=== PATIENT | male | born 1955 | race Caucasian/White ===

== ENCOUNTER 2018-02-09 06:48 | Emergency (ER) | payer OTHER ==
[~2018-02-09] VITALS: Ht 177.8 cm; Wt 135.6 kg
[2018-02-09] MEDS ORDERED: GLUCOPHAGE500 MG PO (09:25)
== END 2018-02-09 10:08 | disposition home or self-care (01) ==
LOC: ED 06:48
DX: M54.5 Low back pain (principal); R73.9 Hyperglycemia, unspecified
CPT/HCPCS: 76705; 80053; 81001; 83690; 85025; 99284

== ENCOUNTER 2018-05-14 19:03 | Observation (INO) | payer OTHER ==
[~2018-05-14] VITALS: Ht 177.8 cm; Wt 135.1 kg
[~2018-05-14 19:03] MED LIST: GLUCOPHAGE500 MG PO
[2018-05-15] MEDS ORDERED: NORCO 5-325 TA1 EACH PO (02:39)
--- NOTE | 2018-05-15 04:00 | NUR ---
IN ROOM FOR PT ADMISSION. ASSESSMENT COMPLETE. PT AOX4, APPROPRIATE, POLITE. PT ARRIVED FROM ED IN STRETCHER. AMBULATED TO BED INDEPENDENTLY. HEART SOUNDS HEARD, CLEAR S1/S2, LS CLEAR, BT ACTIVE IN ALL QUADRANTS. PT DENIES ANY ABD DISCOMFORT OR PAIN AT THIS TIME. PAIN 0/10. NO N/V. PULSES STRONG AND EQUAL BILATERALLY. PERRLA 2-3MM, BRISK. PT ORIENTED TO ROOM. CALL LIGHT AT BEDSIDE. SECOND IV STARTED IN PT'S LEFT FOREARM, 20G. FLUSHES WELL, BLOOD RETURN NOTED. IV LR RUNNING PER EMAR. NO REQUESTS AT THIS TIME. CALL LIGHT WITHIN REACH.
--- NOTE | 2018-05-15 06:48 | NUR ---
PT AOX3, PLEASANT AND APPROPRIATE. PT INDEPENDENT IN ROOM. AMBULATES WELL. IV RUNNING PER EMAR. WNL. PT DENIES ANY N/V/D, NO ABD. DISCOMFORT. PT DENIES PAIN RATES AT 0/10. PT NPO R/T POSSIBLE SURGERY, HEART SOUNDS HEARD CLEAR S1,S2. LS CLEAR, BT ACTIVE. NO TENDERNESS WITH PALPATION. PULSES EQUAL BILATERALLY. NO REQUESTS AT THIS TIME. CALL LIGHT WITHIN REACH.
--- NOTE | 2018-05-15 07:04 | NUR ---
SPOKE WITH MD LEWIS, NEW ORDERS FOR CHEST XRAY AND EKG PRE OP, NOW. ORDERS ENTERED.
--- NOTE | 2018-05-15 07:45 | NUR ---
RECIEVED BEDSIDE REPORT FROM SHIRA MORRIS AND SHIRA ALVARADO. PT IS AWAKE AND ALERT IN BED. DR LEWIS HAS NOT BEEN IN TO SEE PT YET. EKG IN ROOM DURING REPORT. DAY SURGERY CALLED, THEY WANT PT TO GO TO DAY SURGERY DIRECTLY FROM CHEST XRAY. PREOP CHECKLIST HAS NOT BEEN STARTED.
--- NOTE | 2018-05-15 09:53 | HP ---
[facility] [address] [place], [place] [address] Signed ADMISSION DATE: 05/14/2018 CHIEF COMPLAINT: Obstructing right ureteral calculus with associated active urinary tract infection. HISTORY OF PRESENTING ILLNESS: Mr. Matos is a very pleasant 62-year-old gentleman with no previous history of nephrolithiasis, who presented to the emergency department late last night with a 4-day history of anorexia and malaise. He describes that his symptoms began last and he noticed that he just was not "feeling well" and had lost his desire to eat and drink fluids. He denies any gross hematuria or symptoms of active fever. A couple of days later, he began to induce vomiting in an effort to improve his generalized malaise. He made the decision to come to the emergency department late last night after experiencing four days of symptoms. He underwent a CT scan in the emergency department, which revealed a 6 mm distal right ureteral calculus with associated hydronephrosis. Urinalysis revealed no evidence of nitrites, trace leukocytes, and 30 white blood cells per high-power field. CBC revealed a white blood cell count of 12.3. I was contacted by the emergency department, who notified me of the obstructing stone in combination with what appeared to be an active urinary tract infection. The patient has since been admitted to observation medical-surgical floor and has made n.p.o. and given IV Rocephin in preparation for semi-urgent intervention. REVIEW OF SYSTEMS: Positive for nausea, anorexia, vomiting, and right lower quadrant discomfort. Review of systems is negative for chest pain, fevers, chills, gross hematuria or dysuria. PAST MEDICAL HISTORY: Significant for diabetes and osteoarthritis of the bilateral knees. PAST SURGICAL HISTORY: The patient underwent an appendectomy and tonsillectomy at age 6. MEDICATIONS: The patient is currently taking metformin twice daily, which was given to him relatively recently in the emergency department when he presented there with elevated blood sugars. He is yet to see a primary care physician. FAMILY HISTORY: Noncontributory. SOCIAL HISTORY: Electronically Signed By: ALYSIA LEWIS MD 05/15/18 0953 PATIENT NAME: EMILY MATOS HISTORY AND PHYSICAL DATE OF : 57 REPORT #: [id number] PHYSICIAN: ALYSIA LEWIS MD PCP: ENLA DEVINE MD REPORT IS CONFIDENTIAL AND NOT TO BE RELEASED WITHOUT AUTHORIZATION [address] [address] Signed The patient denies any alcohol or tobacco use. 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 PHYSICAL EXAMINATION: VITAL SIGNS: The patient's current temperature is 98.4 degrees Fahrenheit, his pulse is in the 70s to 80s. Blood pressure is in the 140s over 80s. GENERAL: On exam, he appears in no acute distress. He is alert and oriented. He is answering all questions appropriately. CARDIOVASCULAR: Reveals a regular rate and rhythm. LUNGS: Clear. ABDOMEN: Soft and nondistended. There is some mild tenderness to palpation of the right lower quadrant. EXTREMITIES: He is moving all extremities equally. LABORATORY DATA: White blood cell count 12.3, creatinine 1.15, and GFR 65. Urinalysis reveals trace leuks and 30 white blood cells per high-power field. IMAGING: CAT scan revealed a 6 mm right ureteral calculus approximately 1 cm above the right ureterovesical junction. There was associated hydronephrosis as well as perinephric stranding on that side. There were no other stones seen in either kidney. ASSESSMENT: 1. Obstructing 6 mm distal right ureteral calculus with associated hydronephrosis. 2. Presumed urinary tract infection/pyuria. PLAN: The patient has been n.p.o. Since 0300 hours this morning. He was admitted to observation and was given IV fluids and pain control as needed. He is now ready to head to the operating room to undergo cystoscopy with right ureteral stent insertion. I explained the risks and benefits of the procedure today to him and answered all of his questions, and he has agreed to proceed. I explained to him today that he will be stented today and be sent home on oral antibiotics once he remains afebrile for at least 3-4 hours after surgery. He will likely return next Tuesday, one week from now, to undergo definitive extraction of a 6 mm right distal ureteral calculus. Alysia Lewis MD Electronically Signed By: ALYSIA LEWIS MD 05/15/18 0953 PATIENT NAME: EMILY MATOS HISTORY AND PHYSICAL DATE OF : 57 REPORT #: [id number] PHYSICIAN: ALYSIA LEWIS MD PCP: NELA DEVINE MD REPORT IS CONFIDENTIAL AND NOT TO BE RELEASED WITHOUT AUTHORIZATION [address] [address] Signed AR/MODL /[id number] Copies: ~ Electronically Signed By: ALYSIA LEWIS MD 05/15/18 0953 PATIENT NAME: EMILY MATOS HISTORY AND PHYSICAL DATE OF : 57 REPORT #: [id number] PHYSICIAN: ALYSIA LEWIS MD PCP: NELA DEVINE MD REPORT IS CONFIDENTIAL AND NOT TO BE RELEASED WITHOUT AUTHORIZATION
--- NOTE | 2018-05-15 10:13 | NUR ---
05/15/18 1013 Antoinette Llanes 1000 PT ARRIVED IN PACU SLEEPY WITH NO C/O'S. 1010 AT BEDSIDE TALKING TO PT.
--- NOTE | 2018-05-15 10:45 | NUR ---
PT ARRIVED BACK ON UNIT AT 1040. REPORT FROM SHIRA BACK. PT AWAKE AND ALERT IN BED. REPORTS NO NAUSEA, ITCHING OR PAIN. NEEDS TO VOID. HAT AND URININAL PLACED IN BATHROOM. PT ABLE TO STAND AND WALK INDEPENDENTLY. REPORTS NO DIZZINESS OR LIGHTHEADEDNESS.
[2018-05-15] MEDS ORDERED: AUGMENTIN 875-1 EACH PO (10:50)
[2018-05-15] MEDS ORDERED: PERCOCET 5-3251 EACH (10:53)
[2018-05-15] MEDS ORDERED: PERCOCET 5-3251 EACH PO (10:55)
--- NOTE | 2018-05-15 12:27 | NUR ---
PT UP TO VOID. TOLERATING CLEAR LIQUIDS WELL. WOULD LIKE TO ORDER LUNCH, DIET ENTERED IS REGULAR. PT IS ORDERING LUNCH.
--- NOTE | 2018-05-15 13:43 | NUR ---
PT IN BED, ALERT, ORIENTED AND LOOKING AT MENU FOR LUNCH. PT STATED HE WAS NOT IN PAIN, AND REQUESTED I CONTACT HIS AMMONIA BOX OPERATOR FROM [facility], WHICH I DID. WILL CONTINUE TO FOLLOW NEEDED
--- NOTE | 2018-05-15 14:11 | OR ---
[facility] [address] [place], [place] [address] Signed DATE OF OPERATION: 05/15/2018 SURGEON: Alysia Lewis MD PREOPERATIVE DIAGNOSES: 1. A 6 mm right distal ureteral calculus, with associated hydronephrosis. 2. Active urinary tract infection. POSTOPERATIVE DIAGNOSES: 1. A 6 mm right distal ureteral calculus, with associated hydronephrosis. 2. Active urinary tract infection. NAMES OF PROCEDURES: 1. Diagnostic cystourethroscopy. 2. Insertion of right ureteral stent. ANESTHESIA: General. ESTIMATED BLOOD LOSS: Minimal. COMPLICATIONS: None. SPECIMENS: None. DRAINS: A 6 x 26 cm contour double-J ureteral stent inserted to the right collecting system. INDICATIONS FOR PROCEDURE: Mr. Matos is a very pleasant 62-year-old gentleman with no previous history of nephrolithiasis, who presented to the emergency department late last night with a 4-day history of right lower quadrant discomfort along with malaise and anorexia. At the time of his presentation to the emergency department, he denied any issues with fevers, chills, or gross hematuria. Urinalysis revealed trace leukocytes as well as 30 white blood cells per high-power field. A CT scan was performed, which revealed a 6 mm obstructing right ureteral calculus located a cm above the right ureterovesical junction, along with hydronephrosis and perinephric stranding on the right side. I was Electronically Signed By: ALYSIA LEWIS MD 05/15/18 1411 PAT[facility] RECORD #: [id number] OPERATIVE REPORT DATE OF : 57 REPORT #: [id number] PHYSICIAN: ALYSIA LEWIS MD PCP: NELA DEVINE MD REPORT IS CONFIDENTIAL AND NOT TO BE RELEASED WITHOUT AUTHORIZATION [facility] [address] [place], [place] [address] Signed consulted by the emergency department physician and based on the patient's current clinical picture, he was assigned observation to the medical-surgical unit and was made n.p.o. and given IV antibiotics. He presents now to undergo cystoscopy with right ureteral stent insertion for decompression of his right collecting system. FINDINGS: 1. On cystoscopy, there was no evidence of any suspicious masses, lesions, or stones. Bilateral ureteral orifices are in their normal anatomic location. 2. Ureteroscopy revealed some mild narrowing and discoloration of the proximal urethra. I was able to pass the 22.5-Vincentian sheath through this portion of the urethra without any significant difficulty. 3. After insertion of a Sensor wire and confirmation of placement of the wire on fluoroscopy, I passed a 6 x 26 cm contour double-J ureteral stent into the right ureter under direct visualization. DESCRIPTION OF PROCEDURE: After informed consent was obtained, the patient was taken back to the operating room. He was transferred from the [facility] to the operating room table, where general anesthesia was induced. He was placed in the dorsal lithotomy position and his genitalia were prepped and draped in the standard sterile fashion. Using a 30-degree lens on a 22.5-Vincentian introducer, rigid cystoscope was inserted through his urethra into his bladder under direct visualization. Please see the above findings. Once a thorough cystoscopy was performed, I turned my attention to the right to the right ureteral orifice. A Sensor wire was inserted into the right ureteral orifice and up to the collecting system. A moderate amount of debris and sediment was known to be effluxing out of the right ureter once the sensor wire was passed. There definitely appeared to be evidence of out of outlet obstruction from the right ureteral orifice with the wire and the position confirmed on fluoroscopy, a 6 x 26 cm contour double-J ureteral stent was then inserted into the patient's right ureter under direct visualization. Once the wire was pulled, an adequate proximal coil was seen within the right renal pelvis, along with an adequate distal coil on cystoscopy. The patient's bladder was then drained and the cystoscope was removed. The procedure was then terminated. The patient tolerated the procedure well without any complication. He will now be transferred to the postanesthesia care unit in stable condition. DISPOSITION: I discussed the details of today's procedure with the patient, answered all of his questions. He understands that he is to return to the operating room on May 23, 2018 to undergo definitive stone extraction in the form of right ureteroscopy, laser lithotripsy, basket extraction of stones and right ureteral stent exchange. If he remains afebrile for at least the next 4 hours, he will qualify to be sent home on Augmentin 875 p.o. b.i.d. for a total of seven days. He was also given Percocet /325 Electronically Signed By: ALYSIA LEWIS MD 05/15/18 1411 PATIENT NAME: EMILY MATOS OPERATIVE REPORT DATE OF : 57 REPORT #: [id number] PHYSICIAN: ALYSIA LEWIS MD PCP: NELA DEVINE MD REPORT IS CONFIDENTIAL AND NOT TO BE RELEASED WITHOUT AUTHORIZATION [address] [address] Signed q.6 hours p.r.n. pain, dispense #30. 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 Alysia Lewis MD AR/NANOL /[id number] Copies: ~ Electronically Signed By: ALYSIA LEWIS MD 05/15/18 1411 PATIENT NAME: EMILY MATOS OPERATIVE REPORT DATE OF : 57 REPORT #: [id number] PHYSICIAN: ALYSIA LEWIS MD PCP: NELA DEVINE MD REPORT IS CONFIDENTIAL AND NOT TO BE RELEASED WITHOUT AUTHORIZATION
--- NOTE | 2018-05-15 14:22 | NUR ---
DR LEWIS CALLED. RN GAVE UPDATE ON PT CONDITION. DR LEWIS WOULD LIKE HIM TO STAY UNTIL 1500, IF STILL AFEBRILE AND VSS, CAN GO HOME. PT IS SCHEDULED TO RETURN TO THE OR ON MAY 23, NEEDS TO CHECK IN AT ADMITING AT 0900.
--- NOTE | 2018-05-15 15:58 | NUR ---
PT DISCHARGE TEACHING COMPLETE. DISCUSSED FOLLOW UP SURGERY ON MAY 23. PT VERBALIZED UNDERSTANDING. PHARMACY COUNCELED ON MEDICATIONS. IV OUT, PT DRESSED. FRIENDS ENROUTE TO ENGAGEMENT DIRECTOR PT.
--- NOTE | 2018-05-16 14:43 | EKG ---
[facility] [address] [facility] [place], [place] [address] Signed Normal sinus rhythm Normal ECG No previous ECGs available Confirmed by ALONZO RUBI MD ([id number]) on 05/16/2018 2:43:38 PM Electronically Signed By: ALONZO RUBI MD 05/16/18 1443 PATIENT NAME: EMILY NEVAREZ Electrocardiogram DATE OF : 57 PHYSICIAN: ALONZO RUBI MD REPORT #: [id number] REPORT IS CONFIDENTIAL AND NOT TO BE RELEASED WITHOUT AUTHORIZATION
== END 2018-05-15 16:10 | disposition home or self-care (01) ==
LOC: ED 19:03 → MS 19:04
PROVIDERS: ADMIT Urology
PROC: 0T768DZ Dilation of Right Ureter with Intraluminal Device, Via Natural or Artificial Opening Endoscopic (ICD-10-PCS; principal; 2018-05-15 08:30)
DX: N13.6 Pyonephrosis (principal); E11.9 Type 2 diabetes mellitus without complications; E66.9 Obesity, unspecified; M17.0 Bilateral primary osteoarthritis of knee; Z79.84 Long term (current) use of oral hypoglycemic drugs; Z68.41 Body mass index [BMI] 40.0-44.9, adult
CPT/HCPCS: 00910; 71046; 74018; 74176; 80053; 81001; 83690; 85025; 93005; 93010; 96361; 96374; 96375; 99285; C2617; G0378; J0330; J0696; J1100; J1885; J2250; J2543; J2704; J3010; J7030

== ENCOUNTER 2018-05-23 09:09 | Day surgery (SDC) | payer OTHER ==
[~2018-05-23] VITALS: Ht 177.8 cm; Wt 135.1 kg
--- NOTE | ~2018-05-23 | OR ---
[facility] [address] [facility] [place], [place] [address] Draft DATE OF OPERATION: 05/23/2018 SURGEON: Alysia Lewis MD PREOPERATIVE DIAGNOSES: 1. Right distal ureteral calculus. 2. History of active urinary tract infection in the presence of an obstructing 6 mm distal right ureteral calculus. POSTOPERATIVE DIAGNOSES: 1. Right distal ureteral calculus. 2. History of active urinary tract infection in the presence of an obstructing 6 mm distal right ureteral calculus. NAMES OF PROCEDURES: 1. Diagnostic cystoscopy with right retrograde pyelogram. 2. Right semi-rigid ureteroscopy with laser lithotripsy and basket extraction of stones. 3. Right ureteral stent exchange. ANESTHESIA: General. ESTIMATED BLOOD LOSS: Minimal. COMPLICATIONS: None. SPECIMENS: Fragments of right ureteral calculus, sent to the lab for stone analysis. DRAINS: A 6 x 28 cm double-J ureteral stent inserted in the right ureter. INDICATIONS FOR PROCEDURE: Mr. Goodwin is a very pleasant 62-year-old gentleman, who presented last week to the emergency department with malaise and flank pain. He was also found to have an active UTI at that time. He underwent a CT scan, which revealed a 6 mm distal right ureteral calculus with associated hydronephrosis. He subsequently underwent semi-emergent cystoscopy with right ureteral stent insertion approximately one week ago. He presents PATIENT NAME: EMILY MATOS OPERATIVE REPORT DATE OF : 57 REPORT #: [id number] PHYSICIAN: ALYSIA LEWIS MD PCP: NELA DEVINE MD REPORT IS CONFIDENTIAL AND NOT TO BE RELEASED WITHOUT AUTHORIZATION [facility] [address] [place], [place] [address] Draft today to undergo definitive extraction of his obstructing 6 mm distal right ureteral calculus. OPERATIVE FINDINGS: 1. On cystoscopy, there was no evidence of any suspicious masses, lesions, or stones within the bladder. He has an indwelling right ureteral stent, which appears to be moderately calcified. 2. Right retrograde pyelogram was performed, which revealed no evidence of any dilation of the right renal calyces or right ureter prior to retrograde urography. An approximately 6 mm calcification can be seen in the distal right ureter on fluoroscopy. 3. Right semi-rigid ureteroscopy was performed and the 6 mm stone was located in the distal right ureter approximately a 1.5 cm above the right ureteral orifice. The stone was fragmented using a 270 micron fiber with the holmium laser. The stone fragmented with some difficulty; however, I was able to extract 100% of the stone fragments with a Zero tip basket. 4. A 6 x 28 cm Contour double-J ureteral stent was inserted into the right collecting system at the end of the procedure. DESCRIPTION OF PROCEDURE: After informed consent was obtained, the patient was taken back to the operating room. He was transferred from the [facility] to the operating room table, where general anesthesia was induced. He was placed in a dorsal lithotomy position and his genitalia prepped and draped in standard sterile fashion. Using a 30-degree lens on a 22-1/2-Italian introducer, rigid cystoscope was inserted through his urethra and into his bladder under direct visualization. Panendoscopic views of the bladder were then obtained. Attention was turned to the right ureteral orifice where there was an indwelling right ureteral stent. Please see above findings. The stent was removed to the level of the urethral meatus using the graspers. A 0.035 sensor wire was then inserted into the lumen of the stent into the right collecting system. The indwelling stent was removed fully intact. I attempted retrograde pyelogram with the wire in place; however, this was unsuccessful. Therefore, I passed a semi-rigid ureteroscope alongside the wire into the patient's right distal ureter. I was able to identify the stone in the distal ureter and then fragmented using a holmium laser and a 270 micron fiber. The stone fragmented with some difficulty, making it suspicious of a calcium oxalate monohydrate stone. Once the stone was fragmented, I was able to extract all of the fragments using a Zero tip basket without difficulty. The fragments initially were placed into the patient's bladder. With the Sensor wire still in place, I passed a 6 x 28 cm Contour double-J ureteral stent into the right collecting system under direct visualization without difficulty. Once the stent was in good positioning with an adequate proximal coil within the right renal pelvis along with an adequate distal coil within the bladder, I used the cystoscope to extract the stone fragments from the patient's bladder and placed them in a specimen cup. The patient's bladder was then emptied and the cystoscope was removed. PATIENT NAME: EMILY MATOS OPERATIVE REPORT DATE OF : 57 REPORT #: [id number] PHYSICIAN: ALYSIA LEWIS MD PCP: NELA DEVINE MD REPORT IS CONFIDENTIAL AND NOT TO BE RELEASED WITHOUT AUTHORIZATION [facility] [address] [place] [address] Draft The procedure was then terminated. The patient tolerated the procedure well without any complication. He will now be transferred to the Postanesthesia Care Unit in stable condition. DISPOSITION: Mr. Matos will be discharged to home later today in stable condition once he awakes from anesthesia. I spoke with his daughter and discussed the details of today's procedure with her and answered all of her questions. He will be scheduled to return to clinic in three days to undergo cystoscopy with right ureteral stone extraction. I told the daughter at that time the stone analysis would likely not be available. However, he will be scheduled to see me approximately 3-4 weeks from now with a repeat urine check and to discuss the stone results. He was sent home today with Bactrim Double Strength p.o. b.i.d. for a total of 5 days along with Pyridium 200 mg p.o. b.i.d. p.r.n. dysuria, #12. He has told me that he already has pain pills at home to be used as needed. MD JUDY Roca/DOT /[id number] Copies: ~ PATIENT NAME: EMILY MATOS OPERATIVE REPORT DATE OF : 57 REPORT #: [id number] PHYSICIAN: AYLSIA LEWIS MD PCP: NELA DEVINE MD REPORT IS CONFIDENTIAL AND NOT TO BE RELEASED WITHOUT AUTHORIZATION
[~2018-05-23 09:09] MED LIST changes: +AUGMENTIN 875-1 EACH PO; +NORCO 5-325 TA1 EACH PO; +PERCOCET 5-3251 EACH; +PERCOCET 5-3251 EACH PO
--- NOTE | 2018-05-23 12:31 | NUR ---
05/23/18 Araceli1 Nayla Reno 1225-PATIENT ARRIVED TO PACU ON 6L MASK O2 SAT 1O0% PATIENT REACTIVE TO VOICE. DENIES PAIN OR NAUSEA. DROWSY BACK TO SLEEP RR EVEN. SR. GLUCOSE CHECKED 128. NO DRAINAGE NOTED TO CARLOS AREA
--- NOTE | 2018-05-23 13:19 | NUR ---
1300: PATIENT BACK IN DAY SURGERY ROOM FROM PACU. DENIES PAIN. STATES FEELS NEED TO USE THE BATHROOM. IV SITE WNL. SCDs ON. CALL LIGHT WITHIN REACH. DAUGHTER AT BEDSIDE. 1315: PATIENT ASSISTED OOB AND TO BATHROOM. GAIT STEADY. VOID WITHOUT DIFFICULTY. SMALL AMOUNT OF BLOOD SEEN IN URINE. GAIT STEADY BACK TO ROOM. IV SALINE LOCKED. SCDs BACK ON. CALL LIGHT WITH IN REACH. DECLINED SOMETHING TO EAT AT THIS TIME.
--- NOTE | 2018-05-23 14:24 | NUR ---
1410: PATIENT DENIES PAIN. TOLERATING WATER. LUNCH ORDERED FOR PATIENT. CALL LIGHT WITHIN REACH.
[2018-05-23] MEDS ORDERED: BACTRIM DS TAB1 EACH PO (14:35)
[2018-05-23] MEDS ORDERED: PYRIDIUM200 MG PO (14:36)
--- NOTE | 2018-05-23 16:21 | NUR ---
1515: PATIENT TOLERATED LUNCH. RESTING. DAUGHTER AT BEDSIDE. CALL LIGHT WITHIN REACH. 1550: IV DC'D WNL. TIP INTACT. DRESSING APPLIED. DISCHARGE INSTRUCTIONS GIVEN TO PATIENT. PATIENT DRESSED. DISCHARGED TO HOME WITH DAUGHTER VIA WHEELCHAIR.
== END 2018-05-23 15:50 | disposition home or self-care (01) ==
LOC: DS 09:09 → OPS 09:09 → DS 10:30 → OPS 10:30
PROVIDERS: Urology
PROC: 0T768DZ Dilation of Right Ureter with Intraluminal Device, Via Natural or Artificial Opening Endoscopic (ICD-10-PCS; principal; 2018-05-23 10:30)
PROC: 0TC68ZZ Extirpation of Matter from Right Ureter, Via Natural or Artificial Opening Endoscopic (ICD-10-PCS; 2018-05-23 10:30)
PROC: 0TP98DZ Removal of Intraluminal Device from Ureter, Via Natural or Artificial Opening Endoscopic (ICD-10-PCS; 2018-05-23 10:30)
PROC: BT1DYZZ Fluoroscopy of Right Kidney, Ureter and Bladder using Other Contrast (ICD-10-PCS; 2018-05-23 10:30)
DX: N13.2 Hydronephrosis with renal and ureteral calculous obstruction (principal); E11.9 Type 2 diabetes mellitus without complications; M17.0 Bilateral primary osteoarthritis of knee; E66.9 Obesity, unspecified; Z79.84 Long term (current) use of oral hypoglycemic drugs; Z68.41 Body mass index [BMI] 40.0-44.9, adult
CPT/HCPCS: 00918; 74420; 82365; C2617; J0330; J0696; J2250; J2405; J2704; J3010; J7120; Q9967

== ENCOUNTER 2018-11-11 17:14 | Emergency (ER) | payer BC ==
[~2018-11-11] VITALS: Ht 177.8 cm; Wt 135.1 kg
[~2018-11-11 17:14] MED LIST changes: +BACTRIM DS TAB1 EACH PO; +PYRIDIUM200 MG PO
--- NOTE | 2018-11-12 13:56 | EKG ---
[facility] [address] [facility] [place] [address] Signed Sinus rhythm with frequent premature ventricular complexes Otherwise normal ECG When compared with ECG of 15-MAY-2018 07:19, premature ventricular complexes are now present Nonspecific T wave abnormality now evident in Inferior leads Confirmed by JAYE CALABRESE MD ([id number]) on 11/12/2018 1:56:21 PM Electronically Signed By: JAYE CALABRESE MD 11/12/18 1356 PATIENT NAME: EMILY NEVAREZ Electrocardiogram DATE OF : 57 PHYSICIAN: JAYE CALABRESE MD REPORT #: [id number] REPORT IS CONFIDENTIAL AND NOT TO BE RELEASED WITHOUT AUTHORIZATION
== END 2018-11-11 19:11 | disposition home or self-care (01) ==
LOC: ED 17:14
DX: R06.00 Dyspnea, unspecified (principal); E11.9 Type 2 diabetes mellitus without complications; Z79.84 Long term (current) use of oral hypoglycemic drugs
CPT/HCPCS: 71045; 80053; 83880; 84484; 85025; 93005; 93010; 99284-25

== ENCOUNTER 2021-01-02 13:58 | Emergency (ER) | payer BC ==
[~2021-01-02] VITALS: Ht 177.8 cm; Wt 135.1 kg
[2021-01-02] MEDS ORDERED: METFORMIN HCL1000 MG PO (14:13)
--- NOTE | 2021-01-02 16:13 | EKG ---
[facility] [address] [place] [address] Signed Sinus tachycardia with 1st degree AV block with premature atrial complexes Inferior infarct , age undetermined Abnormal ECG When compared with ECG of 11-NOV-2018 18:17, premature ventricular complexes are no longer present premature atrial complexes are now present MN interval has increased Vent. rate has increased BY [address] now depressed in Lateral leads Confirmed by ALONZO RUBI MD ([id number]) on 01/02/2021 4:13:01 PM Electronically Signed By: ALONZO RUBI MD 01/02/21 1613 PATIENT NAME: EMILY NEVAREZ Electrocardiogram DATE OF : 57 PHYSICIAN: ALONZO RUBI MD REPORT #: [id number] REPORT IS CONFIDENTIAL AND NOT TO BE RELEASED WITHOUT AUTHORIZATION
--- NOTE | 2021-01-02 16:15 | EKG ---
[facility] [address] [place] [address] Signed Sinus rhythm with frequent premature ventricular complexes Otherwise normal ECG When compared with ECG of 02-JAN-2021 14:14, (Unconfirmed) premature ventricular complexes are now present premature atrial complexes are no longer present [place] interval has decreased Vent. rate has decreased BY [address] no longer depressed in Lateral leads Confirmed by ALONZO RUBI MD ([id number]) on 01/02/2021 4:15:10 PM Electronically Signed By: ALONZO RUBI MD 01/02/21 1615 PATIENT NAME: EMILY NEVAREZ Electrocardiogram DATE OF : 57 PHYSICIAN: ALONZO RUBI MD REPORT #: [id number] REPORT IS CONFIDENTIAL AND NOT TO BE RELEASED WITHOUT AUTHORIZATION
== END 2021-01-02 16:11 | disposition home or self-care (01) ==
LOC: ED 13:58
DX: I49.9 Cardiac arrhythmia, unspecified (principal); E11.9 Type 2 diabetes mellitus without complications; Z79.84 Long term (current) use of oral hypoglycemic drugs
CPT/HCPCS: 71045; 80053; 83735; 84439; 84443; 84484; 85025; 85379; 93005; 93010; 99285-25; J7030

== ENCOUNTER 2021-05-15 08:55 | Day surgery (SDC) | payer BC ==
[~2021-05-15] VITALS: Ht 177.8 cm; Wt 145.4 kg
[~2021-05-15 08:55] MED LIST changes: +METFORMIN HCL1000 MG PO; +VIT C-ROSE HIP500 MG PO
--- NOTE | 2021-05-15 11:02 | NUR ---
05/15/21 1102 Zohra Villegas 1058 PATIENT SLEEPING. AWAKENS WITH VERBAL STIMULI, BACK TO SLEEP WHEN NOT STIMULATED. RESP EVEN AND UNLABORED, NC AT 4 LITERS.
--- NOTE | 2021-05-15 15:30 | OR ---
[facility] [address], [place] [address] Signed DATE OF OPERATION: 05/15/2021 SURGEON: Parish Sherman MD PREOPERATIVE DIAGNOSES: 1. Positive Cologuard test. 2. Brother with a history of colonic polyps, age 50 with 10-year followup. POSTOPERATIVE DIAGNOSES: 1. Minimal to moderate external hemorrhoids. 2. Moderate internal hemorrhoids. 3. A 12 mm polyp at 40 cm (tattoo, snare). 4. A 7 mm polyp at 55 cm. 5. Minimal to moderate sigmoid diverticulosis. PROCEDURE: Colonoscopy with hot biopsy, snare polypectomy and injection of tattoo. ESTIMATED BLOOD LOSS: None. INDICATIONS: Buddy is a 65-year-old obese diabetic gentleman, asked to see me for his initial colonoscopy. His brother had colonic polyps removed at age 50. His brother was told to follow up every 10 years. The doctor told his brother all of his siblings should have colonoscopy. His brother now is 65 years old. Buddy had a positive Cologuard test. Otherwise, no specific lower GI complaints. 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 In the office, I gave him a pamphlet on colonoscopy and we had reviewed that together in detail. He understands the nature of the test along with the risks including, but not limited to gas bloating, crampy abdominal pain, bleeding, perforation requiring surgery, and missed diagnosis. Also because of his body habitus with a very around face, heavy neck, heavy abdomen and his medical issues, we asked that an anesthesia provider help us with increased monitoring sedation with propofol. That proved to be a gautam decision as he does need some attention to his airway while he is sedated. He had expressed understanding and wished to proceed. PROCEDURE NOTE: Buddy was taken into our endoscopy suite and placed in the left lateral decubitus position. He was placed under IV sedation with propofol per our nurse angle dozer operator. A Electronically Signed By: PARISH SHERMAN MD 05/15/21 1530 PATIENT NAME: BUDDY NEVAREZ OPERATIVE REPORT DATE OF : 57 REPORT #: [id number] PHYSICIAN: PARISH SHERMAN MD PCP: GERTRUDE SALAS NP REPORT IS CONFIDENTIAL AND NOT TO BE RELEASED WITHOUT AUTHORIZATION [facility] [address], [place] [address] Signed digital rectal exam was performed. He does have some minimal to moderate circumferential external hemorrhoids. He had good sphincter tone. Prostate is becoming mildly enlarged and indurated. The adult colonoscope was introduced and advanced under direct visualization of camera. His prep was moderate. There was a couple areas of liquid stool most of that was irrigated and suctioned out. He might consider some additional prep in the future. We could easily see the appendiceal orifice and the ileocecal valve. The scope was then slowly withdrawn. We took pictures throughout for photodocumentation. We used a hot biopsy forceps to remove the polyp at 55 cm. We had used the snare to remove the polyp back at 40 cm. We then placed a tattoo next to the polypectomy site. There was excellent hemostasis. He does have moderate sized diverticula in his sigmoid colon. They were minimal to moderate in number, and scattered about. The rectum was unremarkable. Upon retroflexion of scope, he does have moderate internal hemorrhoids. After this, the gas was suctioned out and colonoscope removed. Buddy tolerated the procedure quite well. RECOMMENDATIONS: I will see Buddy back in my office in 7 to 14 days to review his results. He might consider some additional bowel prep in the future. Parish Sherman MD ALB/MODL /[id number] cc: MD Gertrude Conn NP Copies: PARISH SHERMAN MD ~ Electronically Signed By: PARISH SHERMAN MD 05/15/21 1530 PATIENT NAME: BUDDY NEVAREZ OPERATIVE REPORT DATE OF : 57 REPORT #: [id number] PHYSICIAN: PARISH SHERMAN MD PCP: GERTRUDE SALAS NP REPORT IS CONFIDENTIAL AND NOT TO BE RELEASED WITHOUT AUTHORIZATION
--- NOTE | 2021-05-18 14:19 | PATH ---
[facility] [address] [place], [place] [address] Signed SPECIMEN(S): A POLYP AT 40 CM SPECIMEN(S): B POLYP AT 55 CM SPECIMEN SOURCE: A. POLYP AT 40 CM B. POLYP AT 55 CM CLINICAL HISTORY: Surveillance colonoscopy. Postop Dx: Internal and external hemorrhoids, diverticulosis, polyps x 2. MICROSCOPIC DESCRIPTION: Histologic sections of all submitted blocks are examined by light microscopy. These findings, together with the gross examination, support the pathologic diagnosis. FINAL PATHOLOGIC DIAGNOSIS: A. Colon, polyp at 40 cm, polypectomy: - Tubular adenoma with focal high-grade dysplasia. - Cauterized polyp stalk margin negative for dysplasia. - Negative for invasive carcinoma. B. Colon, polyp at 55 cm, polypectomy: - Fragments of tubular adenoma. - Negative for high-grade dysplasia or malignancy. NAL:cml:C2NR GROSS DESCRIPTION: Two specimens are received in two containers labeled with "." A. The specimen, labeled "MD 1," and designated on the requisition "polypectomy, 40 cm," is received in formalin and consists of one pink-nelson, pedunculated polyp with bosselated head (1.4 x 1.2 x 0.9 cm). The resection margin is inked blue and the specimen is trisected and submitted entirely in cassette (A1). B. The specimen, labeled ", 2," and designated on the requisition "polypectomy at 55 cm," is received in formalin and consists of four fragments of pink-nelson tissue (0.2-0.3 cm in greatest dimension). The specimen is submitted entirely in cassette (B1). AC (under the direct supervision of a pathologist) The Gross Description was prepared using a voice recognition system. The report was reviewed for accuracy; however, sound-alike word errors, addition and/or deletions may occur. If there is any question about this report, please contact Client Services. PATIENT NAME: EMILY NEVAREZ PATHOLOGY DATE OF : 57 REPORT #: [id number] PHYSICIAN: LUIS PATHOLOGY PCP: LAVERN SALAS NP REPORT IS CONFIDENTIAL AND NOT TO BE RELEASED WITHOUT AUTHORIZATION [facility] [address] [place], [place] [address] Signed PERFORMING LABORATORY: The technical component was performed by [address] [address] (Marketing Administrative Assistant: Coco Mi MD; CLIA# [id number]). Professional interpretation was performed by [facility], [address] [address] (CLIA# [id number]). Diagnostician: Kimberly Mccartney MD Pathologist Electronically Signed 05/18/2021 Copies: ~ PATIENT NAME: EMILY NEVAREZ PATHOLOGY DATE OF : 57 REPORT #: [id number] PHYSICIAN: LUIS SWEENEY PCP: LAVERN SALAS NP REPORT IS CONFIDENTIAL AND NOT TO BE RELEASED WITHOUT AUTHORIZATION
== END 2021-05-15 11:25 | disposition home or self-care (01) ==
LOC: OPS 08:55 → DS 08:55 → OPS 10:00 → DS 06-19 06:45
PROVIDERS: ATTEND Colon & Rectal Surgery
PROC: 0DBE8ZX Excision of Large Intestine, Via Natural or Artificial Opening Endoscopic, Diagnostic (ICD-10-PCS; 2021-05-15)
PROC: 3E0H8KZ Introduction of Other Diagnostic Substance into Lower GI, Via Natural or Artificial Opening Endoscopic (ICD-10-PCS; 2021-05-15)
PROC: 0DBE8ZX Excision of Large Intestine, Via Natural or Artificial Opening Endoscopic, Diagnostic (ICD-10-PCS; principal; 2021-05-15 10:00)
DX: D12.6 Benign neoplasm of colon, unspecified (principal); K64.8 Other hemorrhoids; K64.4 Residual hemorrhoidal skin tags; K57.30 Diverticulosis of large intestine without perforation or abscess without bleeding; E11.9 Type 2 diabetes mellitus without complications; J45.909 Unspecified asthma, uncomplicated; M19.90 Unspecified osteoarthritis, unspecified site; E66.01 Morbid (severe) obesity due to excess calories; Z68.42 Body mass index [BMI] 45.0-49.9, adult; Z83.71 Family history of colonic polyps; Z86.16 Personal history of COVID-19; Z79.84 Long term (current) use of oral hypoglycemic drugs
CPT/HCPCS: J1610; J2001; J2704; J7121

== ENCOUNTER 2022-12-27 10:12 | Emergency (ER) | payer BC ==
[~2022-12-27] VITALS: Ht 177.8 cm; Wt 149.7 kg
[2022-12-27] MEDS ORDERED: GLIPIZIDE10 MG PO (10:35)
[2022-12-27] MEDS ORDERED: AMLODIPINE BESYL5 MG PO (10:35)
[2022-12-27] MEDS ORDERED: PIOGLITAZONE HC15 MG PO (10:35)
[2022-12-27] MEDS ORDERED: TERAZOSIN HCL1 MG PO (10:36)
[2022-12-27] MEDS ORDERED: CYCLOBENZAPRINE10 MG PO (13:03)
--- NOTE | 2022-12-27 16:07 | EKG ---
[facility] [address] [facility] [place], [place] [address] Signed Unusual P axis, possible ectopic atrial rhythm with frequent premature ventricular complexes Low voltage QRS Incomplete right bundle branch block Abnormal ECG No previous ECGs available Confirmed by ALONZO RUBI MD ([id number]) on 12/27/2022 4:07:43 PM Electronically Signed By: ALONZO RUBI MD 12/27/22 1607 PATIENT NAME: GERIEMILY MENDEZ Electrocardiogram DATE OF : 57 PHYSICIAN: ALONZO RUBI MD REPORT #: [id number] REPORT IS CONFIDENTIAL AND NOT TO BE RELEASED WITHOUT AUTHORIZATION
== END 2022-12-27 13:20 | disposition home or self-care (01) ==
LOC: ED 10:12
DX: R07.89 Other chest pain (principal); E11.9 Type 2 diabetes mellitus without complications; Z20.822 Contact with and (suspected) exposure to COVID-19; Z91.030 Bee allergy status; Z79.84 Long term (current) use of oral hypoglycemic drugs
CPT/HCPCS: 36415; 71045; 80053; 83735; 83880; 84484; 85025; 85379; 85610; 85730; 87502; 93005; 93010; C9803; U0003

== ENCOUNTER 2023-07-28 21:35 | Emergency (ER) | payer MEDICARE ==
[~2023-07-28] VITALS: Ht 177.8 cm; Wt 148.0 kg
[~2023-07-28 21:35] MED LIST changes: +AMLODIPINE BESYL5 MG PO; +CYCLOBENZAPRINE10 MG PO; +GLIPIZIDE10 MG PO; +PIOGLITAZONE HC15 MG PO; +TERAZOSIN HCL1 MG PO
[2023-07-28] MEDS ORDERED: TORSEMIDE20 MG (21:51)
[2023-07-28] MEDS ORDERED: ISOSORBIDE MONO30 MG (21:52)
[2023-07-28] MEDS ORDERED: METOPROLOL SUCC50 MG (21:52)
[2023-07-28] MEDS ORDERED: POTASSIUM CHLO20 ME1 (21:52)
[2023-07-28 22:21] LABS: BASOPHILS 0.8 % (0-2); HEMATOCRIT 44.7 % (35.0-50.0); HEMOGLOBIN 15.2 g/dL (12.0-18.0); LYMPHOCYTES 16.5 % (24-44); MCH 30.1 (27-36); MCHC 33.9 g/dl (30-36); MCV 88.8 fl (81-99); MONOCYTES 6.6 % (0-12); NEUTROPHILS 75.1 % (39-80); PLATELET COUNT 194 K/uL (140-440); RBC 5.04 M/ul (4.3-5.7); RDW 13.8 (10.5-15.0)
[2023-07-28 22:38] LABS: ALBUMIN 3.5 g/dL (3.4-5.0); ALBUMIN/GLOBULIN RATIO 0.88 (1.1-2.4); ANION GAP 15.2 (7-21); BUN/CREATININE RATIO 17.93 (6.0-28.6); CALCIUM 8.9 mg/dL (8.5-10.1); CREATININE, SERUM 1.45 mg/dL (0.70-1.30); MAGNESIUM 1.6 mg/dL (1.8-2.4); POTASSIUM 4.2 mmol/L (3.5-5.1); PROTEIN, TOTAL 7.5 g/dL (6.4-8.2)
[2023-07-28 22:47] LABS: INFLUENZA B NAA NEGATIVE (NEGATIVE); RESPIRATORY SYNCYTIAL VIR NAA NEGATIVE (NEGATIVE)
[2023-07-28 23:32] LABS: INR 1.1 (0.80-1.30); PROTIME 13.8 Sec (11.2-14.2)
[2023-07-28 23:34] LABS: PARTIAL THROMBOPLASTIN TIME 30.4 Sec (22.9-41.3)
[2023-07-29 02:30] VITALS: BP 140/110
== END 2023-07-29 02:30 | disposition short-term general hospital (02) ==
LOC: ED 21:35
PROVIDERS: Internal Medicine
DX: I26.99 Other pulmonary embolism without acute cor pulmonale (principal); I11.0 Hypertensive heart disease with heart failure; I50.9 Heart failure, unspecified; E66.9 Obesity, unspecified; M19.90 Unspecified osteoarthritis, unspecified site; J44.9 Chronic obstructive pulmonary disease, unspecified; Z91.030 Bee allergy status; Z79.899 Other long term (current) drug therapy
CPT/HCPCS: 36415; 71045; 71260; 80053; 83735; 83880; 84484; 85025; 85379; 85610; 85730; 87502; 93005; 93010; 94640; 96374; 96375; 99285-25; C9803; J1644; J2930; Q9967; U0002

== ENCOUNTER 2024-03-29 13:22 | Emergency (ER) | payer OTHER, MEDICARE ==
[~2024-03-29] VITALS: Ht 177.8 cm; Wt 150.0 kg
[~2024-03-29 13:22] MED LIST changes: +ISOSORBIDE MONO30 MG; +METOPROLOL SUCC50 MG; +POTASSIUM CHLO20 ME1; +TORSEMIDE20 MG
[2024-03-29 13:51] LABS: BASOPHILS 0.7 % (0-2); EOSINOPHILS 1.1 % (0-6); HEMATOCRIT 39.3 % (35.0-50.0); HEMOGLOBIN 13.5 g/dL (12.0-18.0); LYMPHOCYTES 11.8 % (24-44); MCH 29.8 (27-36); MCHC 34.5 g/dl (30-36); MCV 86.5 fl (81-99); MONOCYTES 6.6 % (0-12); NEUTROPHILS 79.8 % (39-80); PLATELET COUNT 193 K/uL (140-440); RBC 4.54 M/ul (4.3-5.7); RDW 14.6 (10.5-15.0)
[2024-03-29] MEDS ORDERED: FUROSEMIDE20 MG PO (14:30)
[2024-03-29] MEDS ORDERED: ELIQUIS5 MG PO (14:30)
[2024-03-29 14:45] LABS: ALBUMIN 3.1 g/dL (3.4-5.0); ALBUMIN/GLOBULIN RATIO 0.84 (1.1-2.4); ALCOHOL, MEDICAL <3 ng/dL (<3); ALKALINE PHOSPHATASE 47 U/L (46-116); ALT (SGPT) 16 U/L (14-59); ANION GAP 10.6 (7-21); AST (SGOT) 14 U/L (15-37); BILIRUBIN, TOTAL 0.8 ng/dL (0.2-1.0); BUN/CREATININE RATIO 16.55 (6.0-28.6); CALCIUM 8.7 mg/dL (8.5-10.1); CARBON DIOXIDE 31 mmol/L (21-32); CHLORIDE 102 mmol/L (98-107); CREATININE, SERUM 1.45 mg/dL (0.70-1.30); GLOMERULAR FILTRATION RATE,EST 53 mL/min (>60); POTASSIUM 4.6 mmol/L (3.5-5.1); PROTEIN, TOTAL 6.8 g/dL (6.4-8.2); UREA NITROGEN 24 mg/dL (7-18)
[2024-03-29 15:26] LABS: AMPHETAMINES, URINE NEGATIVE (NEGATIVE); BARBITURATES, URINE NEGATIVE (NEGATIVE); BENZODIAZEPINE, URINE NEGATIVE (NEGATIVE); BUPRENORPHINE, URINE NEGATIVE (NEGATIVE); CANNABINOID, URINE NEGATIVE (NEGATIVE); COCAINE, URINE NEGATIVE (NEGATIVE); ECSTASY, URINE NEGATIVE (NEGATIVE); FENTANYL, URINE NEGATIVE (NEGATIVE); METHADONE, URINE NEGATIVE (NEGATIVE); OPIATES, URINE NEGATIVE (NEGATIVE); OXYCODONE, URINE NEGATIVE (NEGATIVE); PHENCYCLIDINE, URINE NEGATIVE (NEGATIVE)
[2024-03-29 16:21] VITALS: BP 144/74
--- NOTE | 2024-03-30 22:41 | EKG ---
[facility] [address] [facility] [place] [address] Signed Sinus rhythm with sinus arrhythmia and PVCs Low voltage QRS Incomplete right bundle branch block Borderline ECG When compared with ECG of 28-JUL-2023 21:59, Incomplete right bundle branch block is now present , present previously Borderline criteria for Inferior infarct are no longer present Confirmed by Zena Thompson MD () on 03/30/2024 10:41:18 PM Electronically Signed By: ZENA THOMPSON MD 03/30/24 2241 PATIENT NAME: EMILY NEVAREZ Electrocardiogram DATE OF : 57 PHYSICIAN: ZENA THOMPSON MD REPORT #: [id number] REPORT IS CONFIDENTIAL AND NOT TO BE RELEASED WITHOUT AUTHORIZATION
== END 2024-03-29 16:21 | disposition home or self-care (01) ==
LOC: ED 13:22
PROVIDERS: Emergency Medicine
DX: N13.2 Hydronephrosis with renal and ureteral calculous obstruction (principal); M19.90 Unspecified osteoarthritis, unspecified site; E11.9 Type 2 diabetes mellitus without complications; J44.9 Chronic obstructive pulmonary disease, unspecified; V59.40XA Driver of pick-up truck or van injured in collision with unspecified motor vehicles in traffic accident, initial encounter; Z79.84 Long term (current) use of oral hypoglycemic drugs; Z79.899 Other long term (current) drug therapy; Z91.030 Bee allergy status
CPT/HCPCS: 36415; 70450; 71260; 72125; 74177; 80053; 80307; 83690; 85025; 93005; 93010; 99284-25; G0480; Q9967

== ENCOUNTER 2024-04-23 07:50 | Day surgery (SDC) | payer MEDICARE ==
[2024-04-19 08:26] VITALS: BP 133/72
[~2024-04-23] VITALS: Ht 177.8 cm; Wt 152.3 kg
[~2024-04-23 07:50] MED LIST changes: +CEFAZOLIN SODIUM 3 GM/30 ML SYR IV SCH; +ELIQUIS5 MG PO; +FUROSEMIDE20 MG PO; +IBLOOD GLUCOSE TEST STRIP 1 EA TEST VI PRN; +LACTATED RINGER'S 1,000 ML IV SCH; +LIDOCAINE HCL 1% 5 ML SDV INJ ONE
[2024-04-23] MEDS ORDERED: HYDROmorphone HCL 1 MG/ML SYR IV PRN (08:00)
[2024-04-23] MEDS ORDERED: OXYCODONE/APAP 5/325 TAB PO PRN (08:00)
[2024-04-23] MEDS ORDERED: PHENAZOPYRIDINE HCL 95 MG TAB PO PRN (08:00)
[2024-04-23] MEDS ORDERED: KETOROLAC TROMETHAMINE 15 MG/ML VIAL IV PRN (08:00)
[2024-04-23] MEDS ORDERED: ondansetron HCL 4 MG/2 ML VIAL IV PRN ×2 (08:00→11:45)
[2024-04-23 08:02] VITALS: BP 115/47
--- NOTE | 2024-04-23 08:26 | NUR ---
BROTHER JENNIFER IN ROOM WITH PT AND IS RIDE HOME.
[2024-04-23] MEDS ORDERED: fentaNYL citrate 100 MCG/2 ML VIAL ONE (08:32)
[2024-04-23] MEDS ORDERED: propofoL 200 MG/20 ML VIAL ONE (08:32)
[2024-04-23] MEDS ORDERED: DEXAMETHASONE SOD PHOS 4 MG/ML VIAL ONE (08:32)
[2024-04-23] MEDS ORDERED: MIDAZOLAM HCL 2 MG/2 ML VIAL ONE (08:32)
[2024-04-23] MEDS ORDERED: KETOROLAC TROMETHAMINE 30 MG/ML VIAL ONE (08:32)
[2024-04-23] MEDS ORDERED: LIDOCAINE HCL 2% 5 ML SDV ONE (08:32)
[2024-04-23] MEDS ORDERED: ondansetron HCL 4 MG/2 ML VIAL ONE (08:32)
[2024-04-23] MEDS ORDERED: iopamidoL 30 ML VIAL ONE (09:19)
[2024-04-23] MEDS ORDERED: fentaNYL citrate 100 MCG/2 ML VIAL IV PRN (11:45)
[2024-04-23] MEDS ORDERED: NALOXONE HCL 0.4 MG SYR IV PRN (11:45)
--- NOTE | 2024-04-23 11:51 | NUR ---
04/23/24 1151 Antoinette Llanes 1126 PT ARRIVED IN PACU SLEEPY. 1130 BLOOD SUGAR 100. NO NEW ORDERS. 1145 C/O URGE TO VOID. URINAL IN PLACE.
[2024-04-23 12:06] VITALS: BP 145/83
[2024-04-23 13:09] VITALS: BP 124/60
--- NOTE | 2024-04-23 13:14 | NUR ---
UP TO BR.
--- NOTE | 2024-04-23 13:18 | NUR ---
VOIDS 200MLS ALEJANDRA RED URINE. DENIES PAIN. EATING JELLO.
--- NOTE | 2024-04-23 13:54 | NUR ---
IS NOW READY TO GO HOME. BROTHER HERE TO TAKE HIM HOME.
== END 2024-04-23 13:45 | disposition home or self-care (01) ==
LOC: DS 07:50 → OPS 07:50 → DS 09:40 → OPS 13:45
PROVIDERS: ATTEND Urology
PROC: BT1DZZZ Fluoroscopy of Right Kidney, Ureter and Bladder (ICD-10-PCS; principal; 2024-04-23 09:40)
PROC: 0WHR8YZ Insertion of Other Device into Genitourinary Tract, Via Natural or Artificial Opening Endoscopic (ICD-10-PCS; 2024-04-23 09:40)
DX: N20.1 Calculus of ureter (principal); N35.919 Unspecified urethral stricture, male, unspecified site; E11.9 Type 2 diabetes mellitus without complications; I10 Essential (primary) hypertension
CPT/HCPCS: 74450; J0690; J1100; J1885; J2001; J2250; J2405; J2704; J3010; J7121; Q9958

== ENCOUNTER → 2024-05-07 | Day surgery (SDC) | payer MEDICARE ==
[~2024-05-07] VITALS: Ht 175.3 cm; Wt 152.3 kg
[~2024-05-07] MED LIST changes: +DEXAMETHASONE SOD PHOS 4 MG/ML VIAL ONE; +HYDROmorphone HCL 1 MG/ML SYR IV PRN; +KETOROLAC TROMETHAMINE 15 MG/ML VIAL IV PRN; +LIDOCAINE HCL 2% 5 ML SDV ONE; +MAXIDEX5 ML OPTH; +NALOXONE HCL 0.4 MG SYR IV PRN; +OXYCODONE/APAP 5/325 TAB PO PRN; +PHENAZOPYRIDINE HCL 95 MG TAB PO PRN; +ROCURONIUM BROMIDE 50 MG/5 ML SYR ONE; +SUGAMMADEX SODIUM 200 MG/2 ML ML ONE; +TORSEMIDE10 MG PO; +ePHEDrine sulfate 50 MG/ML AMP ONE; +fentaNYL citrate 100 MCG/2 ML VIAL ONE; +fentaNYL citrate 50 MCG/ML SDV IV PRN; +iopamidoL 30 ML VIAL ONE; +ondansetron HCL 4 MG/2 ML VIAL IV PRN; +ondansetron HCL 4 MG/2 ML VIAL ONE; +propofoL 200 MG/20 ML VIAL ONE
[2024-05-07 09:58] VITALS: BP 153/75
--- NOTE | 2024-05-07 11:45 | NUR ---
INTO PTS ROOM FOR HOURLY ROUNDS. PT OBSERVED SITTING UPRIGHT IN BED WATCHING TV AND PLAYING GAMES ON HIS PHONE. PT DENIES ANY NEEDS OR QUESTIONS AT THIS TIME. CALL LIGHT WITHIN REACH. BED IN LOW POSITION WITH WHEELS LOCKED. L BEDRAILS IS UP IN PLACE TO AID PT IN REPOSITIONING HIMSELF IN BED FOR COMFORT.
--- NOTE | 2024-05-07 12:50 | NUR ---
INTO PTS ROOM FOR HOURLY ROUNDING. PT SEEN SITTING UP IN BED WATCHING TV AND PLAYING GAMES ON HIS CELL PHONE. PT UPDATED ON EST TIME TILL HE GOES BACK TO [place]. PT REPORTS NEED TO USE RESTROOM. IV SL'D AND PT AMBULATED TO RESTROOM INDEPENDENTLY. ONCE PT BACK IN BED, IV FLUSHED AND FLUIDS RESTARTED PER ORDERS. PT DENIES ANY FURTHER NEEDS OR QUESTIONS AT TIME. CALL LIGHT WITHIN REACH. BED IN LOW POSITION AND WHEELS LOCKED. BEDRAIL IS UP IN PLACE ON L HAND SIDE FOR PTS REPOSITIONING ASSISTANCE IN BED.
--- NOTE | 2024-05-07 12:57 | NUR ---
INTO PTS ROOM FOR HOURLY ROUNDING. PT SITTING UP IN BED AND WATCHING TV AND PLAYING GAMES ON PHONE. PT DENIES ANY NEEDS OR QUESTIONS AT THIS TIME. CALL LIGHT WITHIN REACH, BED IN LOW POSITION, WHEELS LOCKED.
--- NOTE | 2024-05-07 16:55 | NUR ---
05/07/24 1655 Jillian Powers 1651- PT ARRIVES TO PACU REACTIVE TO VOICE BY OPENING HIS EYES. PT FALLS INSTANTLY BACK TO SLEEP. RESP EVEN AND UNLABORED. OXYGEN SAT HIGH 90'S ON 6L VIA MASK.
[2024-05-07 17:25] VITALS: BP 151/69
--- NOTE | 2024-05-07 17:25 | NUR ---
Patient arrives to CCU to meet parameters prior to discharge. Patient with flat affect, disoriented to surroundings/situation, aware of self and birthdate. On 2L O2 NC. BP stable. HRR. Stent in place in penis and steri strips to meatus noted, clean dry and intact. Patient able to take small sips of water. CBG checked, 104. Verified DC paperwork and prescriptions available for discharge.
[2024-05-07 18:25] VITALS: BP 146/71
--- NOTE | 2024-05-07 18:39 | NUR ---
Patient able to sit at EOB and dangle, no lightheaded or dizziness, able to stand with 1PA and FWW and transfer to BS, 200ml of red urine voided. Denies pain at this time. Patients brother at bedside, updated on patient status.
--- NOTE | 2024-05-07 19:54 | NUR ---
EMILY WAS DISCHARGED WITH VSS AND WDL PER MONITOR. DISCHARGE PACKET, EDUCATION, AND PRESCRIPTION HANDOFF COMPLETED BY SHIRA LIZ. ALL BELONGINGS HANDED BACK TO PATIENT. ESCORTED OUT OF THE BUILDING VIA WHEELCHAIR BY THIS RN AND BROTHER JENNIFER. PRIVATE VEHICLE USED TO GO HOME
[2024-05-11 20:56] LABS: CALCULI MASS 371 mg (())
== END ==
LOC: OPS 09:38 → DS 12:15 → OPS 12:15
PROVIDERS: ATTEND Urology
PROC: 0TP98DZ Removal of Intraluminal Device from Ureter, Via Natural or Artificial Opening Endoscopic (ICD-10-PCS; 2024-05-07)
PROC: 0T768DZ Dilation of Right Ureter with Intraluminal Device, Via Natural or Artificial Opening Endoscopic (ICD-10-PCS; 2024-05-07)
PROC: 0TC68ZZ Extirpation of Matter from Right Ureter, Via Natural or Artificial Opening Endoscopic (ICD-10-PCS; principal; 2024-05-07 12:15)
PROC: BT1DZZZ Fluoroscopy of Right Kidney, Ureter and Bladder (ICD-10-PCS; 2024-05-07 12:15)
DX: N20.1 Calculus of ureter (principal); E66.9 Obesity, unspecified; E11.9 Type 2 diabetes mellitus without complications; I10 Essential (primary) hypertension; Z79.899 Other long term (current) drug therapy
CPT/HCPCS: 00910; 76000; 82365; C1769; C2617; J0690; J1100; J2001; J2405; J2704; J3010; J3490; J7121

== ENCOUNTER 2024-08-18 13:19 | Emergency (ER) | payer MEDICARE ==
[~2024-08-18] VITALS: Ht 175.3 cm; Wt 157.9 kg
[~2024-08-18 13:19] MED LIST changes: -CEFAZOLIN SODIUM 3 GM/30 ML SYR IV SCH; -DEXAMETHASONE SOD PHOS 4 MG/ML VIAL ONE; -HYDROmorphone HCL 1 MG/ML SYR IV PRN; -IBLOOD GLUCOSE TEST STRIP 1 EA TEST VI PRN; -KETOROLAC TROMETHAMINE 15 MG/ML VIAL IV PRN; -LACTATED RINGER'S 1,000 ML IV SCH; -LIDOCAINE HCL 1% 5 ML SDV INJ ONE; -LIDOCAINE HCL 2% 5 ML SDV ONE; -NALOXONE HCL 0.4 MG SYR IV PRN; -OXYCODONE/APAP 5/325 TAB PO PRN; -PHENAZOPYRIDINE HCL 95 MG TAB PO PRN; -ROCURONIUM BROMIDE 50 MG/5 ML SYR ONE; -SUGAMMADEX SODIUM 200 MG/2 ML ML ONE; -ePHEDrine sulfate 50 MG/ML AMP ONE; -fentaNYL citrate 100 MCG/2 ML VIAL ONE; -fentaNYL citrate 50 MCG/ML SDV IV PRN; -iopamidoL 30 ML VIAL ONE; -ondansetron HCL 4 MG/2 ML VIAL IV PRN; -ondansetron HCL 4 MG/2 ML VIAL ONE; -propofoL 200 MG/20 ML VIAL ONE
[2024-08-18] MEDS ORDERED: DOXYCYCLINE HY100 MG PO (14:31)
[2024-08-18] MEDS ORDERED: CLINDAMYCIN HC150 MG PO (14:31)
[2024-08-18 14:40] VITALS: BP 156/66
== END 2024-08-18 14:41 | disposition home or self-care (01) ==
LOC: ED 13:19
DX: L03.115 Cellulitis of right lower limb (principal); I87.8 Other specified disorders of veins; E11.9 Type 2 diabetes mellitus without complications; J44.9 Chronic obstructive pulmonary disease, unspecified; I50.9 Heart failure, unspecified; Z87.442 Personal history of urinary calculi; Z91.030 Bee allergy status; Z79.02 Long term (current) use of antithrombotics/antiplatelets; Z79.84 Long term (current) use of oral hypoglycemic drugs; Z79.899 Other long term (current) drug therapy
CPT/HCPCS: 99283